=== PATIENT | male | born 1975 | race Hispanic/Latino ===

== ENCOUNTER 2020-02-03 07:48 | Emergency (ER) | payer SELFPAY ==
[2020-02-03 08:37] LABS: ALT (SGPT) 85 U/L (8-55); AST (SGOT) 45 U/L (5-34); Albumin 5.2 g/dL (3.5-5.0); Alkaline Phosphatase 70 U/L (40-110); Anion Gap 18 mmol/L (10-20); BUN (Urea Nitrogen) 17 mg/dL (8.9-20.6); Bilirubin, Total 0.8 mg/dL (0.2-1.2); Calc. Creatinine Clearance 0 mL/min (70-130); Calcium 10.8 mg/dL (7.8-10.44); Carbon Dioxide 27 mmol/L (22-29); Chloride 96 mmol/L (98-107); Estimated GFR-MDRD 81; Globulin 3.2 g/dL (2.4-3.5); Glucose 122 mg/dL (70-105); Lipase 16 U/L (8-78); Potassium 3.7 mmol/L (3.5-5.1); Protein, Total 8.4 g/dL (6.0-8.3); Sodium 137 mmol/L (136-145)
[2020-02-03 08:38] LABS: #Basophils 0.2 thou/uL (0.0-0.2); #Eosinphils 1.4 thou/uL (0.0-0.7); #Lymphocytes 1.6 thou/uL (1.20-3.40); #Monocytes 0.9 thou/uL (0.11-0.59); #Neutrophils 8.8 thou/uL (1.40-6.50); %Basophils 1.3 % (0.0-1.0); %Eosinophils 10.9 % (0.0-10.0); %Lymphocytes 12.5 % (21.0-51.0); %Neutrophils 68.3 % (42.0-75.0); Hemoglobin 15.5 g/dL (14.0-18.0); Mean Corpuscular HGB CONC 32.4 g/dL (32.0-36.0); Mean Corpuscular Hemoglobin 27.8 pg (27.0-31.0); Mean Corpuscular Volume 85.8 fL (78.0-98.0); Mean Platelet Volume 8.7 fL (7.4-10.4); Platelet Count 339 thou/uL (130-400); RBC Distribution Width 11.8 % (11.5-14.5); Red Blood Cell (RBC) Count 5.57 mill/uL (4.70-6.10); White Blood Cell (WBC) Count 12.9 thou/uL (4.8-10.8)
--- NOTE | 2020-02-03 10:16 | CT ---
CT ABDOMEN AND PELVIS WITHOUT CONTRAST: HISTORY: Epigastric pain. COMPARISON: None. FINDINGS: Lung bases are clear. No pericardial effusion. Aortic contour is nonaneurysmal. Small volume free fluid within the pelvis. The appendix is visualized and is normal. There is abnormal dilatation of the proximal and mid small bowel which measures up to 3.2 cm in size with transition point at an abnormally thickened loop of mid small bowel axial image 70, coronal imag e 52. Small volume mesenteric fluid. No free intraperitoneal gas. Moderate gaseous distention and fluid distention of the stomach. Liver and gallbladder are unremarkable. Noncontrast evaluation of the spleen and pancreas are unrema rkable. Nonobstructing 2 mm left superior renal calculus. No right-sided renal calculus. No hydroureteral n ephrosis. IMPRESSION: 1. Moderate grade small bowel obstruction to the level of the mid to distal small bowel for which th e transition point small bowel loop is circumferentially thickened and irregular. A followup enterog inocente examination after acute symptoms have resolved is recommended. Small bowel followup may be ankit eficial. 2. Small nonobstructing left superior renal 2 mm calculus. No hydroureteral nephrosis. POS: HOME
== END 2020-02-03 10:34 | disposition short-term general hospital (02) ==
LOC: NAV ERS 07:48
DX: K56.609 Unspecified intestinal obstruction, unspecified as to partial versus complete obstruction (principal)
CPT/HCPCS: 74176; 80053; 83690; 85025; 96372; J0500